=== PATIENT | male | born 1985 | race Caucasian/White ===

== ENCOUNTER 2022-07-06 13:35 | Outpatient (CLI) | payer MEDICAID, SELFPAY ==
--- NOTE | 2022-07-06 13:50 | CT_ITS ---
WS: [id number] CT chest w con* [id number] HISTORY: CHEST PAIN TECHNIQUE: Axial imaging performed through the thorax. Coronal and sagittal reformats are submitted. All CT scans at [facility] use at least one of these dose optimization techniques: automated exposure control; mA and/or kV adjustment per patient size (includes targeted exams where dose is mat ched to clinical indication); or iterative reconstruction. CONTRAST: Omnipaque 350; 100 mL IV. DLP: 868.27 mGy.cm COMPARISON: None available. Lungs and central airway: Study limited by breathing motion artifact. No pulmonary nodules or mass. N o opacification related to the injury. No endobronchial abnormality. Pleura: Normal. No pleural effusion. Heart and pericardium: Normal size heart with no pericardial effusion. Mediastinum and rey: No mediastinum or hilar adenopathy. Vessels: Normal size aortic and pulmonary artery. No coronary artery calcifications. Chest wall and lower neck: No soft tissue masses. Upper abdomen: Normal. Osseous structures: Mild straightening of the normal thoracic kyphosis with mild spondylitic changes. Mild focal enlargement involving the posterior medial RIGHT rib which may be from a healed fracture. No acute fracture. CT/CT chest w con* [id number] IMPRESSION: 1. Study is compromised by breathing motion artifact. 2. No pneumonia or pulmonary nodule. No interstitial opacifications related to aging injury. 3. No adenopathy.
[2022-07-06] MEDS: iohexol 350 mg/mL 500 mL Btl (per mL) IV (14:07)
== END 2022-07-06 13:36 | disposition home or self-care (01) ==
LOC: RAD 13:40
PROVIDERS: PCP Electrodiagnostic Medicine; Visit Provider Electrodiagnostic Medicine
DX: R07.9 Chest pain, unspecified (principal)
CPT/HCPCS: 71260; Q9967

== ENCOUNTER 2023-01-27 11:01 | Outpatient (CLI) | payer MEDICAID, SELFPAY ==
--- NOTE | 2023-01-27 11:08 | CT_ITS ---
WS: [id number] CT chest wo con [id number] HISTORY: RIB FRACTURE TECHNIQUE: Axial imaging performed through the thorax. Coronal and sagittal reformats are submitted. All CT scans at [facility] use at least one of these dose optimization techniques: automated exposure control; mA and/or kV adjustment per patient size (includes targeted exams where dose is mat ched to clinical indication); or iterative reconstruction. CONTRAST: None DLP: 797.72 mGy.cm COMPARISON: 07/06/2022 Lungs and central airway: Normally expanded. No pulmonary mass or nodule. No pneumonia. Pleura: Normal. No pleural effusion. Heart and pericardium: Normal size heart with no pericardial effusion. Mediastinum and rey: No mediastinum or hilar adenopathy. Vessels: Normal size aortic and pulmonary artery. No coronary artery calcifications. Chest wall and lower neck: No soft tissue masses. Upper abdomen: Normal. Osseous structures: Reidentified is the mild bony expansion involving the posterior RIGHT ninth rib. Very similar in appearance to the prior study of 07/06/2022. There is no destruction of the cortex. No acute rib fractures. IMPRESSION: 1. No acute thoracic abnormality. 2. Mild expansion of the medial posterior RIGHT ninth rib. Similar to the prior study with no osseous destruction. This may be from a remote healed rib fracture or benign bone lesion such as enchondroma . There has been no progression of the expansion and no destruction of the cortex. Clinically if this is painful bone scan imaging may be helpful to provide additional information.
== END 2023-01-27 11:02 | disposition home or self-care (01) ==
LOC: RAD 11:01
PROVIDERS: PCP Electrodiagnostic Medicine; Visit Provider Electrodiagnostic Medicine
DX: S22.31XG Fracture of one rib, right side, subsequent encounter for fracture with delayed healing (principal); X58.XXXD Exposure to other specified factors, subsequent encounter
CPT/HCPCS: 71250

== ENCOUNTER → 2023-12-19 17:03 | Outpatient (BNVA) | payer MEDICAID, SELFPAY | PROVIDERS: PCP Electrodiagnostic Medicine | DX: J02.9 Acute pharyngitis, unspecified (principal) | CPT/HCPCS: 87880 ==

== ENCOUNTER 2024-04-15 03:52 | Inpatient (IN) | payer MEDICAID, SELFPAY ==
[2024-04-15] VITALS (42 sets, daily range): BP systolic 111–158; BP diastolic 76–120; PULSE 48–154; RESP 10–26; TEMP 36.3–36.6; O2SAT 35–98; BMI 42.3
--- NOTE | 2024-04-15 04:01 | ECG_ITS ---
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
--- NOTE | 2024-04-15 04:06 | XRR_ITS ---
PROCEDURE INFORMATION: Exam: XR Chest Exam date and time: 04/15/2024 4:08 AM Age: 38 years old Clinical indication: Other: Tachycardia; Chest pressure; C/O chest pain. Tachycardic and hypertensive on monitor. TECHNIQUE: Imaging protocol: Radiologic exam of the chest. Views: 1 view. COMPARISON: CT chest con [id number] 27/01/2023 11:15 FINDINGS: Lungs: Unremarkable. No consolidation. Pleural spaces: Unremarkable. No pleural effusion. No pneumothorax. Heart/Mediastinum: Stable cardiomediastinal silhouette. Bones/joints: Unremarkable. XR/XR chest 1V portable [id number] IMPRESSION: No evidence of active cardiopulmonary disease.
[2024-04-15] MEDS: dilTIAZem 5 mg/mL SDV 5 mL 20 MG IVP (04:12)
[2024-04-15 04:21] LABS: Basophils # 0.1 10^3/uL (0.0-0.1); Basophils % 0.7 %; Eosinophils # 0.4 10^3/uL (0.0-0.8); Eosinophils % 3.9 %; Hematocrit 46.8 % (37-53); Lymphocytes # 2.5 10^3/uL (0.8-4.8); Lymphocytes % 26.4 %; Mean Corpuscular HGB Conc 32.5 g/dL (30-55); Mean Corpuscular Hemoglobin 29.4 pg (27-33); Mean Corpuscular Volume 90.5 fl (82-101); Mean Platelet Volume 10.4 fL (7.4-10.4); Monocytes # 0.6 10^3/uL (0.2-0.9); Monocytes % 5.9 %; Neutrophils # 6.03 10^3/uL (1.8-7.7); Neutrophils % 62.8 %; Nucleated Red Blood Cells % 0 %; Platelet Count 156 10^3/cmm (157-399); Red Blood Count 5.17 10^6/uL (3.85-5.65); Red Cell Distribution Width 13.3 % (12.1-15.1); White Blood Count 9.61 10^3/uL (3.29-11.43)
--- NOTE | 2024-04-15 04:31 | W.ED.SOB ---
HPI - SOB/Dyspnea General: Chief Complaint: Shortness of Breath/Dyspnea Stated Complaint: Chest Pain,Pulse seems high Time Seen by Provider: 04/15/24 04:06 History of Present Illness: HPI Narrative: Patient woke up early this morning with complaints of shortness of breath and chest pain found out that his heart was racing. Patient never had this before. Patient presents to the ER and his heart rate was 154 beats a minute. Patient denies any cardiac problems. Patient states when he went to bed he went to bed feeling just fine as usual. Related Data Home Medications ?Medication ?Instructions ?Recorded ?Confirmed chlorthalidone 50 mg tablet 50 mg PO DAILY 05/10/23 12/19/23 lisinopril 30 mg tablet 30 mg PO DAILY 05/10/23 12/19/23 Previous Rx's ?Medication ?Instructions ?Recorded azithromycin 500 mg tablet 500 mg PO DAILY 5 days #5 tabs 12/19/23 Allergies Allergy/AdvReac Type Severity Reaction Status Date / Time Penicillins Allergy Unknown Verified 12/19/23 16:53 Review of Systems General: Reports: 10 or more systems reviewed and unremarkable except in HPI and below PFSH ED PFSH: Medical History Fracture, rib Family History Father Hypertension Social History Smoking and tobacco/nicotine status: current every day tobacco/nicotine user (vape) e-cigarettes E-Cigarette Details: e-cigarette E-cig/vape details: daily x 5 years Alcohol intake: never Substance/Drug Use: current Substance/Drug use frequency: few times a week Lives independently: Yes Household members: family Marital status: Single Number of children: 0 Pets and animals: Yes Pets & animals: cat(s) and dog(s) Physical Exam Const: COMMON NORMALS: no acute distress, average body habitus, patient oriented x3, no limitations, healthy appearing, alert and well nourished HENMT: COMMON NORMALS: normocephalic, atraumatic, hearing grossly normal bilaterally, external ears normal, Normal external nose present, moist oral mucous membranes and oropharynx normal HEAD & SCALP: normocephalic and atraumatic NOSE: Normal external nose present EXTERNAL EAR: Yes external ears normal Neck/C-Spine: COMMON NORMALS: full ROM, no lymphadenopathy, supple, no meningeal signs, no JVD and Thyroid normal THYROID: Thyroid normal Chest: COMMONS NORMALS: normal inspection of the chest and normal palpation of entire chest wall Resp: COMMON NORMALS: normal respiratory effort, No retractions, No use of accessory muscles and clear to auscultation bilaterally AUSCULTATION: clear to auscultation bilaterally Cardio: COMMON NORMALS: no JVD, S1 normal heart sound present, S2 normal heart sound present, No gallops present (Cardio), No clicks present (Cardio) and No murmurs present (Cardio); negative for regular rate (Irregularly irregular tachycardic rhythm) and negative for regular rhythm RATE: abnormal rate (Irregularly irregular tachycardic rhythm) RHYTHM: abnormal rhythm HEART SOUNDS: S1 normal heart sound present and S2 normal heart sound present GI: COMMON NORMALS: Normal to inspection, nondistended, normoactive bowel sounds present, Soft to palpation, non-tender, No hepatosplenomegaly present and no masses PALPATION: Yes Soft to palpation and Yes No hepatosplenomegaly present Neuro: COMMON NORMALS: patient oriented x3 SENSORIUM/ORIENTATION: Yes alert MENINGEAL SIGNS: Yes no meningeal signs Course Vital Signs: Vital signs: Vital Signs Temperature 98 F 04/15/24 04:18 Pulse Rate 147 H 04/15/24 04:50 Respiratory Rate 14 04/15/24 04:50 Blood Pressure 136/105 04/15/24 04:50 Pulse Oximetry 90 04/15/24 04:50 MDM - SOB/Dyspnea Medical Decision Making Patient came in in A-fib with RVR with a rate about 150 beats a minute. He was given 20 mg Cardizem which did not seem to get any results. He is then placed on a Cardizem drip. Lab work was obtained. Dr. Irene was consulted who agreed to take the patient for further evaluation and treatment. Medical Records I reviewed the patient's medical records. Lab Data I reviewed the patient's lab results. 04/15/24 04:14 04/15/24 04:14 Labs/Radiology: Laboratory Results WBC 9.61 10^3/uL (3.29-11.43) 04/15/24 04:14 RBC 5.17 10^6/uL (3.85-5.65) 04/15/24 04:14 Hgb 15.20 g/dL (11.27-16.99) 04/15/24 04:14 Hct 46.8 % (37-53) 04/15/24 04:14 MCV 90.5 fl (82-101) 04/15/24 04:14 MCH 29.4 pg (27-33) 04/15/24 04:14 MCHC 32.5 g/dL (30-55) 04/15/24 04:14 RDW 13.3 % (12.1-15.1) 04/15/24 04:14 Plt Count 156 10^3/cmm (157-399) L 04/15/24 04:14 MPV 10.4 fL (7.4-10.4) 04/15/24 04:14 Neut % (Auto) 62.8 % 04/15/24 04:14 Lymph % (Auto) 26.4 % 04/15/24 04:14 [place] % (Auto) 5.9 % 04/15/24 04:14 Eos % (Auto) 3.9 % 04/15/24 04:14 Baso % (Auto) 0.7 % 04/15/24 04:14 Neut # (Auto) 6.03 10^3/uL (1.8-7.7) 04/15/24 04:14 Lymph # (Auto) 2.5 10^3/uL (0.8-4.8) 04/15/24 04:14 [place] # (Auto) 0.6 10^3/uL (0.2-0.9) 04/15/24 04:14 Eos # (Auto) 0.4 10^3/uL (0.0-0.8) 04/15/24 04:14 Baso # (Auto) 0.1 10^3/uL (0.0-0.1) 04/15/24 04:14 Nucleated RBC % (auto) 0 % 04/15/24 04:14 Nucleated RBCs # 0.0 /100WBC 04/15/24 04:14 PT 13.70 SECONDS (12.1-14.9) 04/15/24 04:14 INR 0.98 (0.8-1.2) 04/15/24 04:14 Sodium 139 mmol/L (136-145) 04/15/24 04:14 Potassium 4.1 mmol/L (3.5-5.1) 04/15/24 04:14 Chloride 101 mmol/L (98-107) 04/15/24 04:14 Carbon Dioxide 27 mmol/L (22-29) 04/15/24 04:14 Anion Gap 15.1 (5-19) 04/15/24 04:14 Calcium 9.6 mg/dL (8.5-10.5) 04/15/24 04:14 Total Bilirubin 0.3 mg/dL (0.15-1.2) 04/15/24 04:14 AST 27 U/L (0-40) 04/15/24 04:14 ALT 23 U/L (0-41) 04/15/24 04:14 Troponin T Baseline 11 ng/L (0-15) 04/15/24 04:14 Total Protein 7.1 g/dL (6.6-8.7) 04/15/24 04:14 Albumin 4.0 g/dL (3.5-5.2) 04/15/24 04:14 Globulin 3.1 g/dL (1.3-4.6) 04/15/24 04:14 TSH 3.79 uIU/mL (0.27-4.20) 04/15/24 04:14 All radiology interpretation(s) finalized by discharge Discharge Plan Discharge Patient Disposition: Admitted As Inpatient Clinical Impression: Atrial fibrillation with rapid ventricular response Condition: Stable Coding Level of Care Code ED [employer] for Kathy Quijano
[2024-04-15 04:37] LABS: INR 0.98 (0.8-1.2)
[2024-04-15] MEDS: dilTIAZem 100 MG in sodium chloride 0.9% (add-van) 100 ML IV (04:46)
[2024-04-15 04:48] LABS: Troponin(5th) Baseline 11 ng/L (0-15)
[2024-04-15 04:55] LABS: Alanine Aminotransferase 23 U/L (0-41); Alkaline Phosphatase 16 U/L (40-130); Anion Gap 15.1 (5-19); Aspartate Amino Transferase 27 U/L (0-40); Blood Urea Nitrogen 26 mg/dL (6-20); Calcium 9.6 mg/dL (8.5-10.5); Carbon Dioxide 27 mmol/L (22-29); Chloride 101 mmol/L (98-107); Creatinine Clr Calc Pharmacy 109.4107; Globulin 3.1 g/dL (1.3-4.6); Glomerular Filtration Rate 56.4 mL/min (90-130); Glucose 163 mg/dL (65-115); Magnesium 1.5 mg/dL (1.7-2.3); Osmolality Calculated 296 mOsm/kg (285-295); Potassium 4.1 mmol/L (3.5-5.1); Sodium 139 mmol/L (136-145); Thyroid Stimulating Hormone 3.79 uIU/mL (0.27-4.20); Total Bilirubin 0.3 mg/dL (0.15-1.2); Total Protein 7.1 g/dL (6.6-8.7)
--- NOTE | 2024-04-15 04:59 | PM.HP ---
Providers/Chief Complaint Primary Care Provider: Dhaval Arciniega DO Chief Complaint: Chest Pain,Pulse seems high History of Present Illness Mario Savage is a 38 year old male with morbid obesity, hypertension, presented with chief complaint of chest discomfort which started around 2:30 AM. Patient is stating that this discomfort woke him up, it was radiating towards his left arm, he did not experience any diaphoresis, shortness of breath nausea vomiting. In the ER patient was diagnosed with A-fib RVR he was started on Cardizem drip, his heart rate is still 140-100 60s, he was put on amiodarone drip as well patient is not experiencing chest pain or shortness of breath at time of evaluation. He is afebrile. Patient is stating that he has been noticing swelling of his legs recently. Not very active at baseline. Patient thinks he has sleep apnea he has never completed any sleep study. Endorses to electronic cigarettes, occasional marijuana Review of Systems Eyes: Denies: change in vision ENMT: Denies: throat pain Card: Denies: chest pain Resp: Reports: dyspnea GI: Denies: abdominal pain : Denies: flank pain Musc: Reports: neck pain Skin/Breast: Denies: rash Neuro: Denies: headache(s) Psych: Reports: anxiety Endo: Denies: polyuria Medications/Allergies Home Medications ?Medication ?Instructions ?Recorded ?Confirmed ?Last Taken ?Type chlorthalidone 50 mg tablet 50 mg PO DAILY 05/10/23 12/19/23 Unknown History lisinopril 30 mg tablet 30 mg PO DAILY 05/10/23 12/19/23 Unknown History azithromycin 500 mg tablet 500 mg PO DAILY 5 days #5 tabs 12/19/23 12/19/23 Unknown Rx Allergies Allergy/AdvReac Type Severity Reaction Status Date / Time Penicillins Allergy Unknown Verified 12/19/23 16:53 PFSH Acute PFSH: Medical History Fracture, rib Family History Father Hypertension Social History Smoking and tobacco/nicotine status: current every day tobacco/nicotine user (vape) e-cigarettes E-Cigarette Details: e-cigarette E-cig/vape details: daily x 5 years Alcohol intake: never Substance/Drug Use: current Substance/Drug use frequency: few times a week Lives independently: Yes Household members: family Marital status: Single Number of children: 0 Pets and animals: Yes Pets & animals: cat(s) and dog(s) Vitals/I&O/Wt Last Vital Signs Temp 98 F 04/15/24 04:18 Pulse 147 H 04/15/24 04:50 Resp 14 04/15/24 04:50 BP 136/105 04/15/24 04:50 Pulse Ox 90 04/15/24 04:50 Weight last 48 hrs Weight 149.685 kg Physical Exam Narrative: Patient is awake and alert Morbidly obese Currently on room air A-fib RVR Lower extremity edema 1+ Pedal edema GCS 15 Nonfocal neuroexam A-fib RVR Currently on room air Abdomen distended nontender No active chest pain Data 04/15/24 04:14 04/15/24 04:14 A&P Assessment and plan (1) Atrial fibrillation with rapid ventricular response: Plan New onset A-fib A-fib with RVR Johny Vascor is 1 Secondary to abnormal D-dimer I will request therapeutic Lovenox D-dimer and CTA chest to rule out thromboembolic disease Patient has untreated sleep apnea, never completed sleep study, will need at the time of referral discharge Continue cardiac diet Currently on Cardizem drip which helps in optimized patient's heart rate is still in 160s, added amiodarone drip with bolus Check TSH, mag level Replenish magnesium Full code Cardiac diet PDMP PDMP Reviewed: Not Reviewed Attestations Medical Necessity Statement*: More than 2 midnights anticipated Diagnoses Atrial fibrillation with rapid ventricular response I48.91
[2024-04-15 05:25] LABS: D Dimer 2.25 ug/mLFEU (0-0.59)
--- NOTE | 2024-04-15 05:32 | USR_ITS ---
PROCEDURE INFORMATION: Exam: US Duplex Lower Extremity Veins, Bilateral Exam date and time: 04/15/2024 9:44 AM Age: 38 years old Clinical indication: Swelling (edema) of limb; Lower extremity, bilateral TECHNIQUE: Imaging protocol: Real-time duplex ultrasound of the bilateral extremities with 2-D connell scale, color Doppler flow and spectral waveform analysis including responses to compression and other maneuvers (when performed) with image documentation. Complete exam focused on the lower extremity veins. COMPARISON: US scrotum [id number] 02/09/2018 9:10 PM FINDINGS: Right deep veins: Unremarkable. The common femoral, femoral, proximal profunda femoral and popliteal veins are patent without thrombus. Normal Doppler waveforms. Normal compressibility and/or augmentation response. Left deep veins: Unremarkable. The common femoral, femoral, proximal profunda femoral and popliteal veins are patent without thrombus. Normal Doppler waveforms. Normal compressibility and/or augmentation response. Superficial veins: Greater saphenous veins at the saphenofemoral junctions are patent bilaterally without thrombus. Soft tissues: Unremarkable. US/CV venous duplex [facility] [id number] IMPRESSION: No DVT.
--- NOTE | 2024-04-15 05:32 | CTR_ITS ---
PROCEDURE INFORMATION: Exam: CTA Chest With Contrast Exam date and time: 04/15/2024 6:13 AM Age: 38 years old Clinical indication: Pain and abnormal findings; Abnormal diagnostic tests; Elevated d-dimer; Chest pressure; Chest pain with afib rvr. Dimer 2.25. ; Additional info: Pafib rvr TECHNIQUE: Imaging protocol: Computed tomographic angiography of the chest with contrast. Exam focused on the arteries. 3D rendering (Not supervised by radiologist): MIP and/or 3D reconstructed images were created by the technologist. Radiation optimization: All CT scans at this facility use at least one of these dose optimization techniques: automated exposure control; mA and/or kV adjustment per patient size (includes targeted exams where dose is matched to clinical indication); or iterative reconstruction. Contrast material: OMNI 350; Contrast volume: 72 ml; Contrast route: INTRAVENOUS (IV); COMPARISON: CT chest con [id number] 01/27/2023 11:15 AM RADIATION DOSE METRICS: Total DLP (mGy-cm): 617.6 FINDINGS: Pulmonary arteries: Normal. No pulmonary emboli. Aorta: Unremarkable. No aortic aneurysm. No aortic dissection. Lungs: Unremarkable. No consolidation. No masses. Pleural spaces: Unremarkable. No pneumothorax. No pleural effusion. Heart: Unremarkable. No cardiomegaly. No pericardial effusion. Lymph nodes: Unremarkable. No enlarged lymph nodes. Bones/joints: The thoracic spine demonstrates mild degenerative changes at multiple levels. Similar chronic deformity of posterior arch of the right 9th rib, likely posttraumatic Soft tissues: Unremarkable. CT/CT angio chest PE protcl [id number] IMPRESSION: 1. No pulmonary embolism. 2. No acute infiltrates.
[2024-04-15 05:41] LABS: NT Pro B Type Natriuretic Pept 73 pg/mL (0-125)
--- NOTE | 2024-04-15 05:46 | PC.NURSE ---
Patient's cardizem maxed out. Dr Irene notified at bedside and verbal order given for amiodarone drip.
[2024-04-15 05:53] LABS: Bilirubin Urine Negative (Negative); Blood Urine Negative (Negative); Glucose Urine UA Negative (Normal); Ketones Urine Negative (Negative); Leukocyte Esterase Urine Negative (Negative); Nitrate Urine Negative (Negative); Protein Urine Negative (Negative); Specific Gravity, Urine 1.005 (1.005-1.030); Urine Appearance Clear (CLEAR); Urine Color Yellow (Yellow); Urobilinogen Urine 0.2 mg/dL (Negative); pH Urine 5.5 (5-7)
[2024-04-15 05:58] LABS: Add Urine Microscopic? YES; Bacteria Urine None Seen /hpf; Hyaline Casts Urine 0-4 /lpf; RBC Urine 0-2 /hpf (0-2); Squamous Epithelial Cell Urine 0-5 /hpf (0-5); WBC Urine 0-5 /hpf (0-5)
[2024-04-15 06:00] LABS: Amphetamines Screen Urine Negative (Negative); Barbiturates Screen Urine Negative (Negative); Benzodiazepines Screen Urine Negative (Negative); Cocaine Screen Urine Negative (Negative); Opiate Screen Urine Negative (Negative); PCP Screen Urine Negative (Negative); THC Screen Urine Positive (Negative)
[2024-04-15] MEDS: amiodarone 150 MG/100 ML PREMIX 400 MG IV (06:29)
[2024-04-15] MEDS: enoxaparin 150 mg/mL Syringe SUBCUT ×2 (06:30→17:14)
[2024-04-15] MEDS: magnesium sulfate premix 2 GM/50 ML PIGGYBACK IV (06:55)
[2024-04-15 07:26] LABS: Troponin 5 2HR 17.47 ng/L (0-15); Troponin 5 2HR Delta 6.47 ABS# (0-10)
--- NOTE | 2024-04-15 10:36 | ECG_ITS ---
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
[2024-04-15 11:04] LABS: Troponin 5 6HR 15.82 ng/L (0-15); Troponin 5 6HR Delta 4.82 ng/L (0-12)
[2024-04-15] MEDS: dilTIAZem 30 mg Tablet PO ×2 (12:28→17:14)
--- NOTE | 2024-04-15 12:38 | PC.NURSE ---
verbal order from Dr. Banda to stop patients cardizem drip but continue amiodrone drip.
--- OUTSIDE RECORDS SUMMARY | 2024-04-15 12:44 | XMS_ITS | Encounter Summary ---
Author Organization [employer] Address 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
--- OUTSIDE RECORDS SUMMARY | 2024-04-15 12:44 | XMS_ITS | Encounter Summary ---
Author Organization [facility] Address [address] [place] [address] Care Team Providers Care Shop Repairer Name Role Phone Unavailable Primary Care Provider Unavailabl e Reason for Visit * Reason Comments Pain Chest pain * Eval and Treat (Routine) - Closed Specialty Diagnoses / Procedures Referred By Dereck weinstein Referred To Contact Physical Medicine and Rehabilitation Diagnoses Chest pain, unspecified Procedures [place] UNLISTED EVALUATION AND MANAGEMENT SERVICE [place] OFFICE/OUTPATIENT [facility] 30 MINUTES Dhaval Arciniega DO [address] [facility] [address] [place] [address] Phone: tel: fax: [facility] Physical Med [facility] [address] [address] Phone: tel: fax: Referral ID Status Reason Start Date Expiration Date Visits Re quested Visits Authorized [id number] Closed 12/27/2023 01/26/2025 1 1 Encounter Details Date Type Department Care Team (Latest Contact Info) Description 03/16/2024 3:00 PM FERRULER Office Visit [facility] [address] [address] Phillip Carrasco MD [address] [facility] [address] [place] [address] Costochondritis (Primary Dx) Social History Tobacco Use Types Packs/Day Years Used Date Smoking Tobacco: Unknown Tobacco Cessation:Counseling Given: Not Answered Sex and Gender Information Value Date Recorded Sex Assigned at Not on file Legal Sex Male 4:47 AM FERRULER Gender Identity Not on file Sexual Orientation Not on file documented as of this encounter Last Filed Vital Signs Vital Sign Reading Time Taken Comments Blood Pressure 130/80 03/16/2024 2:51 PM FERRULER Pulse - - Temperature - - Respiratory Rate - - Oxygen Saturation - - Inhaled Oxygen Concentration - - Weight 158.8 kg (350 lb) 03/16/2024 2:51 PM FERRULER Height - - Body Mass Index - - documented in this encounter Progress Notes * Phillip Carrasco MD - 03/16/2024 3:01 PM CST PM&R CLINIC NOTE SUBJECTIVE: Patient reports the pain is located R sternal/chest area. It began 2-3 years ago. Therewas a pop when he picked his aunt up off the floor. Patient characterizes their pain as sharp, stabbing pain. Aggravating factors include movements, pressure, laying o his side. Alleviating factors include avoiding aggravating motions. Previous workup: - x-rays w/ no acute pathology Previous treatment: - none. Current Outpatient Medications: meloxicam (MOBIC) 15 mg tablet, Take 1 Tablet (15 mg) by mouth daily. Prescribed Meloxicam 15mg (take 1/2 to 1 tab daily x 4 weeks. Then take no more than 4 days per week)., Disp: 30 Tablet, Rfl: 2 Allergies Allergen Reactions Penicillins Unknown Sulfa (Sulfonamide Antibiotics) Unknown Physical Exam Vitals: 03/16/24 1451 BP: 130/80 BP Location: Right arm Patient Position (BP): Sitting Weight: (!) 158.8 kg (350 lb) There is no height or weight on file to calculate BMI. Constitutional: no acute distress, appears stated age ENMT: supple Cardiovascular: Well perfused Respiratory: normal effort with respirations Gastrointestinal: nondistended Extremities: No edema Skin: Warm and dry Psychiatric: Appropriate mood and affect Neuro/MSK: no ttp along sternum. Some pain with forced R arm internal rotation and extreme adduction against resistance IMAGING: none IMPRESSION: ICD-10-CM ICD-9-CM 1. Costochondritis M94.0 733.6 Mario Savage is a pleasant 38 y.o. male who is here today for sternal pain. History and examination are consistent with a diagnosis of msk pain of anterior right chest, potentially issues with costochondral joint. PLAN: Therapy: No new therapy needs at this time. DME/Bracing: None at this time. Medications: Prescribed Meloxicam 15mg (take 1/2 to 1 tab daily x 4 weeks. Then take no more than 4days per week). Diagnostics: No new diagnostics at this time. Interventions: None at this time. Recommended going to person here in [place] that can do diagnostic ultrasound and potential US guided steroid injection. Follow: Patient will follow up prn. The risks and benefits of above medications and interventions were discussed and patient verbalizedunderstanding. Phillip Carrasco M.D. Physical Medicine and Rehabilitation Portions of this note may have been created using [employer], a voice recognition software program. Please contact my office for clarification on any documentation. ULER documented in this encounter Plan of Treatment Not on file documented as of this encounter Visit Diagnoses Diagnosis Costochondritis- Primary Tietze's disease documented in this encounter
--- OUTSIDE RECORDS SUMMARY | 2024-04-15 12:44 | XMS_ITS | Clinical Summary ---
Author Organization [facility] Address [address] [place] [address] Phone Care Team Providers Care Tentering Machine Off Bearer Name Role Phone Unavailable Primary Care Provider Unavailabl e Allergies Active Allergy Reactions Criticality Noted Date Comments Penicillins Unknown 09/26/2008 Sulfa (Sulfonamide Antibiotics) Unknown 09/06 Medications meloxicam (MOBIC) 15 mg tabletIndicatio ns:Costochondri tis Take 1 Tablet (15 mg) by mouth daily. Prescribed Meloxicam 15mg (take 1/2 to 1 tab daily x 4 weeks. Then take no more than 4 days per week). 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 Office Visit [facility] [place] [address] [place] [id number] Phillip Carrasco MD Costochondritis (Primary Dx) from Last 3 Months Social History Tobacco Use Types Packs/Day Years Used Date Smoking Tobacco: Unknown Tobacco Cessation:Counseling Given: Not Answered Sex and Gender Information Value Date Recorded Sex Assigned at Not on file Legal 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 Gender Identity Not on file Sexual Orientation Not on file Last Filed Vital Signs Vital Sign Reading Time Taken Comments Blood Pressure 130/80 03/16/2024 2:51 PM RIVETING MACHINE OPERATOR Pulse 54 09/26/2008 7:46 AM CDT Temperature 36.7 ??C (98.1 ??F) 09/26/2008 7:46 AM CD T Respiratory Rate 16 09/26/2008 7:46 AM CDT Oxygen Saturation 100% 09/26/2008 7:46 AM CDT Inhaled Oxygen Concentration - - Weight 158.8 kg (350 lb) 03/16/2024 2:51 PM RIVETING MACHINE OPERATOR Height 172.7 cm (5' 8 ) 09/26/2008 7:46 AM CDT Body Mass Index - - Plan of Treatment Health Maintenance Due Date Last Done Comments DTAP/TDAP/TD VACCINES (1 - Tdap) 11/10/2003 HEPATITIS B VACCINES (1 of 3 - 19+ 3-dose series) 11/10/2003 INFLUENZA VACCINE (#1) 2023 HPV VACCINES Aged Out No longer eligi ble based on patient's age to complete this topic PNEUMOCOCCAL VACCINE 0-64 YEARS Aged Out No longer eligible based on patient's age to complete this topic Insurance [facility] [id number]
--- OUTSIDE RECORDS SUMMARY | 2024-04-15 12:44 | XMS_ITS | Encounter Summary ---
Author Organization [employer] Address 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
--- OUTSIDE RECORDS SUMMARY | 2024-04-15 12:44 | XMS_ITS | Encounter Summary ---
Author Organization [employer] Address 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
--- OUTSIDE RECORDS SUMMARY | 2024-04-15 12:44 | XMS_ITS | Encounter Summary ---
Author Organization [employer] Address 

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
--- NOTE | 2024-04-15 13:16 | PM.CONSULT ---
Providers/Reason For Consult Consulting Physician/Specialty*: Dr. Banda Reason for Consult*: New onset of A-fib with RVR Chest pain Requesting Physician: Dr. Banda Attending Physician: Jaycee Banda MD Primary Care Provider: Dhaval Arciniega DO History of Present Illness History of Present Illness Mario Savage is a 38 year old male past medical history significant for morbid obesity trying to lose weight already lost 60 pounds by eating right, uncontrolled hypertension, sleep apnea possible presented with palpitation pounding racing of the heart noted to be in atrial fibrillation with rapid ventricular response. Cardizem drip was tried but patient did not slow down along with metoprolol therefore he was switched to IV amiodarone which converted him to sinus rhythm currently denies any chest pain PND orthopnea. 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 His twelve-lead EKG did not show any ischemic changes. Review of Systems General: Reports: 10 or more systems reviewed and unremarkable except in HPI and below Eyes: Denies: change in vision ENMT: Denies: throat pain Card: Denies: chest pain Resp: Reports: dyspnea GI: Denies: abdominal pain : Denies: flank pain Musc: Reports: neck pain Skin/Breast: Denies: rash Neuro: Denies: headache(s) Psych: Reports: anxiety Endo: Denies: polyuria Medications/Allergies Home Medications ?Medication ?Instructions ?Recorded ?Confirmed ?Last Taken ?Type chlorthalidone 50 mg tablet 50 mg PO DAILY 05/10/23 04/15/24 Unknown History lisinopril 40 mg tablet 40 mg PO DAILY 04/15/24 04/15/24 Unknown History meloxicam 15 mg tablet See Rx Instructions .Route .COMPLEX 04/15/24 04/15/24 Unknown History Allergies Allergy/AdvReac Type Severity Reaction Status Date / Time Penicillins Allergy Unknown Verified 12/19/23 16:53 Current Medications Generic Name Dose Route Start Last Admin Trade Name Freq PRN Reason Stop Dose Admin Diltiazem HCl 30 mg 04/15/24 11:30 04/15/24 12:28 Diltiazem 30 Mg Tablet PO 30 mg Q6H MARU Administration Enoxaparin Sodium 150 mg 04/15/24 05:32 04/15/24 06:30 Enoxaparin 150 Mg/Ml Syringe SUBCUT 150 mg Q12H MARU Administration Diltiazem HCl 100 mg/ Sodium 100 mls @ 0 mls/hr 04/15/24 04:15 04/15/24 11:18 Chloride IV Infused .Q0M MARU Titration Protocol Per Protocol Amiodarone HCl/Dextrose 360 mg in 200 mls @ 0 mls/hr 04/15/24 05:45 04/15/24 12:47 Nexterone IV 0.5 mg/min .Q0M MARU 16.67 mls/hr Administration Protocol Per Protocol Senna/Docusate Sodium 1 tab 04/15/24 09:00 04/15/24 11:20 Sennosides-Docusate Tablet PO Not Given DAILY MARU PFSH Acute PFSH: Medical History Fracture, rib Family History Father Hypertension Social History Smoking and tobacco/nicotine status: current every day tobacco/nicotine user (vape) e-cigarettes E-Cigarette Details: e-cigarette E-cig/vape details: daily x 5 years Alcohol intake: never Substance/Drug Use: current Substance/Drug use frequency: few times a week Lives independently: Yes Household members: family Marital status: Single Number of children: 0 Pets and animals: Yes Pets & animals: cat(s) and dog(s) Dietary Habits: Current diet type/program: regular Caffeine: Yes Vitals/I&O/Wt Last Vital Signs Temp 98 F 04/15/24 04:18 Pulse 108 H 04/15/24 10:00 Resp 16 04/15/24 10:00 BP 143/114 04/15/24 08:15 Pulse Ox 94 04/15/24 10:00 O2 Del Method Room Air 04/15/24 10:00 04/14/24 04/15/24 04/15/24 22:59 06:59 14:59 Intake Total 6.542 / 6.542 443.458 / 443.458 Balance 6.542 / 6.542 443.458 / 443.458 Weight last 48 hrs Weight 330 lb Physical Exam Const: OTHER: GENERAL: Patient is alert, awake and oriented x3. HEART: Regular S1 and S2. No murmur, rub or gallop. LUNGS: Clear to auscultate bilaterally. CENTRAL NERVOUS SYSTEM: Grossly nonfocal. EXTREMITIES: Lower extremities with out edema bilaterally. Data 04/15/24 04:14 04/15/24 04:14 A&P Assessment and plan (1) Atrial fibrillation with rapid ventricular response: (2) Essential hypertension: (3) Chest pain: (4) Vaping nicotine dependence, tobacco product: Plan New onset atrial fibrillation most likely secondary to uncontrolled hypertension/obstructive sleep apnea currently patient is converted to sinus rhythm we will therefore switch him to metoprolol 12.5 mg succinate once a day and Cardizem 60 mg p.o. twice daily. [id number] score is less than 2 therefore full dose 325 mg of aspirin is recommended. As an outpatient patient can undergo sleep study. Advise necessity of losing weight which he is already trying and has lost 60 pounds by eating right. Unfortunately he smokes and vape advised to quit vaping and smoking. Echocardiogram will be obtained, Chest pain appeared to be atypical in nature and mostly musculoskeletal if there is no wall motion abnormality on the echocardiogram may not need a stress test then. Check lipid profile in the morning. Advise quitting vaping patient said he will work on it. PDMP PDMP Reviewed: Not Reviewed Consult Attestations Medical Necessity Statement: As per medicine Coding Level of Care Code Acute Code for [facility] Fwd Diagnoses Atrial fibrillation with rapid ventricular response I48.91 Essential hypertension I10 Chest pain R07.9 Vaping nicotine dependence, tobacco product F17.290
--- NOTE | 2024-04-15 13:22 | PM.MISC ---
Miscellaneous Note Purpose of Documentation: Overnight labs and H&P reviewed. Patient continues to be in A-fib. Currently on Cardizem infusion at 15 mg/h and amiodarone 1 mg/min. Currently heart rate is running in the 70s. Discontinue Cardizem infusion, transition to oral Cardizem 30 mg every 6 hours. Continue amiodarone, reduce dose to 0.5mg/min. Echocardiogram currently remains pending. Patient has a history of untreated suspected sleep apnea. He is yet to have a formal sleep study. Family reports they have encountered him to have multiple episodes of apnea during sleep. This may be the underlying cause. CTA of the chest negative. Jabier extremity Doppler negative for any thromboembolism. Cardiology consult for persistent A-fib in spite of being on to rate control agents. Continue Lovenox 150 mg every 12 hours.
[2024-04-15] MEDS: metoprolol succinate ER (24 HR) 25 mg Tablet 12.5 MG PO (14:09)
[2024-04-15] MEDS: aspirin 325 mg Tablet PO (14:09)
[2024-04-15] MEDS: sodium chloride 0.9% 1,000 ML 100 ML IV (14:56)
[2024-04-16] MEDS: sodium chloride 0.9% 1,000 ML 100 ML IV ×2 (01:00→09:22)
--- NOTE | 2024-04-16 03:00 | ECG_ITS ---
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
[2024-04-16] MEDS: hyDRALAzine 20 mg/mL INJ 1 mL 10 MG IVP (03:56)
[2024-04-16 04:18] LABS: Basophils # 0.1 10^3/uL (0.0-0.1); Basophils % 0.7 %; Eosinophils # 0.4 10^3/uL (0.0-0.8); Eosinophils % 3.6 %; Hematocrit 46.1 % (37-53); Lymphocytes # 2.9 10^3/uL (0.8-4.8); Lymphocytes % 30.2 %; Mean Corpuscular HGB Conc 31.9 g/dL (30-55); Mean Corpuscular Hemoglobin 29.3 pg (27-33); Mean Corpuscular Volume 91.8 fl (82-101); Mean Platelet Volume 11.3 fL (7.4-10.4); Monocytes # 0.5 10^3/uL (0.2-0.9); Monocytes % 5.5 %; Neutrophils # 5.71 10^3/uL (1.8-7.7); Neutrophils % 59.6 %; Nucleated Red Blood Cells % 0 %; Platelet Count 153 10^3/cmm (157-399); Red Blood Count 5.02 10^6/uL (3.85-5.65); Red Cell Distribution Width 13.4 % (12.1-15.1)
[2024-04-16 04:34] LABS: Anion Gap 15.2 (5-19); Blood Urea Nitrogen 21 mg/dL (6-20); Calcium 9.2 mg/dL (8.5-10.5); Carbon Dioxide 26 mmol/L (22-29); Chloride 102 mmol/L (98-107); Creatinine Clr Calc Pharmacy 117.8269; Glomerular Filtration Rate 61.5 mL/min (90-130); Glucose 94 mg/dL (65-115); Magnesium 1.5 mg/dL (1.7-2.3); Osmolality Calculated 291 mOsm/kg (285-295); Potassium 4.2 mmol/L (3.5-5.1); Sodium 139 mmol/L (136-145)
[2024-04-16] MEDS: enoxaparin 150 mg/mL Syringe SUBCUT (05:36)
[2024-04-16 06:09] VITALS: PULSE 46
--- NOTE | 2024-04-16 07:02 | USCV_ITS ---
Mario Savage Age: 38 Gender: M : 1985 Exam Date: 04/16/2024 10:47 Ordering Phys: Cisco Irene MD Technologist: Neal Irvin Exam Location: [facility] [place] Indication: chf BP: 130 / 90 HR: 57 Rhythm: Sinus Technical Quality: Adequate MEASUREMENTS (Male / Female) Normal Values 2D ECHO LV Diastolic Diameter PLAX 5.4 cm 4.2 - 5.9 / 3.9 - 5.3 cm IVS Diastolic Thickness 1.3 cm 0.6 - 1.0 / 0.6 - 0.9 cm IVS Systolic Thickness 1.8 cm LVPW Diastolic Thickness 1.6 cm 0.6 - 1.0 / 0.6 - 0.9 cm LVPW Systolic Thickness 2.2 cm LVOT Diameter 2.2 cm LV Ejection Fraction 2D Teich 70.2 % LV Ejection Fraction MOD 4C 59.1 % LV Ejection Fraction MOD 2C 73.0 % LV Ejection Fraction 2C AL 73.8 % LA Diameter 3.8 cm RA Systolic Volume 4C AL 106.1 ml RA Systolic Volume 4C MOD 103.8 ml LA Sys Volume AL 108.4 cm cubed LA Sys Volume Index AL 36.2 cm cubed/m squared Aorta at Sinotubular Diameter 3.1 cm IVC Diameter 2.4 cm M-MODE LA Ao Ratio MM 1.0 AV Cusp Separation MM 1.8 cm DOPPLER AV Peak Velocity 139.0 cm/s LVOT Peak Velocity 89.0 cm/s AV Area Cont Eq vti 2.3 cm squared AV Area Cont Eq pk 2.4 cm squared MV Peak Velocity 121.0 cm/s MV Area PHT 6.6 cm squared Mitral E to A Ratio 1.3 TV Peak Velocity 279.5 cm/s TR Peak Velocity 284.0 cm/s TR Peak Gradient 32.3 mmHg TR Mean Velocity 232.0 cm/s TR Mean Gradient 22.6 mmHg TR Velocity Time Integral 81.9 cm PV Peak Velocity 92.0 cm/s RV Ejection Time 0.3 s FINDINGS Left Ventricle Normal left ventricular size, systolic function and wall thickness, with no regional wall motion abnormalities. Left ventricular ejection fraction is estimated at 60 %. Normal diastolic function. Right Ventricle The right ventricle is normal in size and function. Right Atrium The right atrium is normal in size. Left Atrium The left atrium is normal in size. Mitral Valve Structurally normal mitral valve without significant stenosis or prolapse. There is no mitral regurgitation. Aortic Valve Structurally normal aortic valve without significant sclerosis or stenosis. There is no aortic regurgitation. Tricuspid Valve Structurally normal tricuspid valve without significant stenosis or regurgitation. Pulmonary artery systolic pressure is normal. Pulmonic Valve Structurally normal pulmonic valve without significant stenosis. There is no pulmonic regurgitation. Pericardium Normal pericardium without effusion. Aorta Normal ascending aorta dimension. IVC The inferior vena cava appears normal. CONCLUSIONS Normal left ventricular size, systolic function and wall thickness, with no regional wall motion abnormalities. Left ventricular ejection fraction is estimated at 60 %. Normal diastolic function. There is no pericardial effusion. No significant valve abnormalities. Right atrial pressure is around 5 mm of mercury. Cisco Roblero MD (Electronically Signed) Final Date: 16 April 2024 20:33 S
[2024-04-16] MEDS: aspirin 325 mg Tablet PO (09:22)
[2024-04-16 09:33] VITALS: PULSE 54; RESP 16; O2SAT 94
[2024-04-16] MEDS: metoprolol succinate ER (24 HR) 25 mg Tablet 12.5 MG PO (10:52)
--- NOTE | 2024-04-16 12:12 | P.PN_ITS ---
Subjective 2 Subjective: Patient remains in sinus rhythm. He had episode of bradycardia last night. Vitals/I&O/Wt Last Vital Signs Temp 97.4 F L 04/15/24 20:30 Pulse 54 L 04/16/24 09:33 Resp 16 04/16/24 09:33 BP 130/90 04/15/24 21:30 Pulse Ox 94 04/16/24 09:33 O2 Del Method Room Air 04/16/24 09:33 04/15/24 04/16/24 04/16/24 22:59 06:59 14:59 Intake Total 590 / 5345.697 5473 / 2513.458 1136.667 / 1136.667 Output Total 380 / 380 550 / 930 900 / 900 Balance 210 / 653.458 930 / 1583.458 236.667 / 236.667 Weight last 48 hrs Weight 360 lb Weight 330 lb Weight 330 lb Physical Exam 2 Const: OTHER: GENERAL: Patient is alert, awake and oriented x3. HEART: Regular S1 and S2. No murmur, rub or gallop. LUNGS: Clear to auscultate bilaterally. CENTRAL NERVOUS SYSTEM: Grossly nonfocal. EXTREMITIES: Lower extremities with out edema bilaterally. Data 04/16/24 03:24 04/16/24 03:24 A&P Assessment and plan (1) Atrial fibrillation with rapid ventricular response: (2) Essential hypertension: (3) Chest pain: (4) Vaping nicotine dependence, tobacco product: Plan Discontinue Cardizem p.o. Continue metoprolol succinate 12.5 mg p.o. once a day. Due to low [id number] score less than 2 advised full dose aspirin 325 mg p.o. daily. Sleep study as an outpatient. Echocardiogram today. If stable patient can be discharged today and follow-up with cardiology nurse practitioner in 4 weeks PDMP PDMP Reviewed: Not Reviewed Attestations 2 Medical Necessity Statement*: As per primary team Coding Level of Care Code Acute Code for [facility] Fwd Diagnoses Atrial fibrillation with rapid ventricular response I48.91 Essential hypertension I10 Chest pain R07.9 Vaping nicotine dependence, tobacco product F17.290
--- NOTE | 2024-04-16 12:31 | P.DS_ITS ---
Discharge Providers Date of Admission: 04/15/24 05:00 Date of Discharge: April 16, 2024 Attending Provider at Admission: Cisco Irene MD Attending Provider at Discharge: Jaycee Banda MD Primary Care Provider: Dhaval Arciniega DO Diagnoses at Discharge Discharge Diagnosis (1) Atrial fibrillation with rapid ventricular response: Status: Acute (2) Essential hypertension: Status: Acute (3) Chest pain: Status: Acute (4) Vaping nicotine dependence, tobacco product: Status: Acute Reason for Visit Reason for Visit: Chest Pain,Pulse seems high Hospital Course Hospital Course 38 year old male past medical history significant for morbid obesity trying to lose weight already lost 60 pounds by eating right, uncontrolled hypertension, highly likely sleep apnea presented with palpitation pounding racing of the heart noted to be in atrial fibrillation with rapid ventricular response. Cardizem drip was tried but patient did not slow down along with metoprolol therefore he was switched to IV amiodarone which converted him to sinus rhythm. thereafter he was transitioned to oral Cardizem and oral metoprolol with development of bradycardia on both medications. Therefore he has now been switched to metoprolol only. His heart rate is currently well-controlled. At the time of this discharge heart rate is noted to be 60 bpm. Blood pressure 150/110. Patient is highly suspected to have sleep apnea. His family reports that they note several apneic episodes during sleep at nighttime. He is yet to have a formal sleep study. This has been ordered for him as outpatient and requested expedited diagnostics. He was noted to have hypoxia with oxygen saturation dropping to 83% during sleep, he remained on CPAP at night time. He was needing up to settings of 18 and thereafter needed to be turned to auto CPAP to maintain his oxygen saturation. He is being discharged today with arrangements for nighttime/sleep time oxygen and is recommended to complete the ordered sleep study as an outpatient. CTA chest was negative for PE, venous duplex negative. Patient was seen by cardiology who reviewed the echo images, final results pending, no gross abnormalities encountered. Physical Exam Narrative: General: No acute distress, AO x3 HEENT: PERRLA, pupils bilaterally equal and reactive, pallors not present Chest: Normal vesicular breath sounds, no added sounds, equal good air entry bilaterally CVS: S1-S2 regular, no murmurs, no tachycardia, no gallops, no rubs Abdomen: Soft, nontender, no organomegaly, bowel sounds present Neuro: No focal deficits, no facial deformity, AO x3, power 5/5 in all limbs Extremities: no edema, clubbing or cyanosis Discharge Data Studies Completed and Pending Completed Studies During Hospitalization Category Date Time Status CTA PE [CT angio chest PE protcl [id number]] Routine Cat Scan 04/15/24 05:32 Completed XR chest 1V portable [id number] Stat Exams 04/15/24 04:06 [place] [id number] Routine Ultrasound 04/15/24 05:32 Completed Pending at discharge Category Date Time Status CV. echo complete* [id number] Stat Ultrasound 04/16/24 07:02 Taken Radiology Impressions Chest X-Ray 04/15/24 04:06 IMPRESSION: No evidence of active cardiopulmonary disease. Chest CTA 04/15/24 05:32 IMPRESSION: 1. No pulmonary embolism. 2. No acute infiltrates. Venous Duplex 04/15/24 05:32 IMPRESSION: No DVT. Laboratory Results WBC 9.60 10^3/uL (3.29-11.43) 04/16/24 03:24 RBC 5.02 10^6/uL (3.85-5.65) 04/16/24 03:24 Hgb 14.70 g/dL (11.27-16.99) 04/16/24 03:24 Hct 46.1 % (37-53) 04/16/24 03:24 MCV 91.8 fl (82-101) 04/16/24 03:24 MCH 29.3 pg (27-33) 04/16/24 03:24 MCHC 31.9 g/dL (30-55) 04/16/24 03:24 RDW 13.4 % (12.1-15.1) 04/16/24 03:24 Plt Count 153 10^3/cmm (157-399) L 04/16/24 03:24 MPV 11.3 fL (7.4-10.4) H 04/16/24 03:24 Neut % (Auto) 59.6 % 04/16/24 03:24 Lymph % (Auto) 30.2 % 04/16/24 03:24 [place] % (Auto) 5.5 % 04/16/24 03:24 Eos % (Auto) 3.6 % 04/16/24 03:24 Baso % (Auto) 0.7 % 04/16/24 03:24 Neut # (Auto) 5.71 10^3/uL (1.8-7.7) 04/16/24 03:24 Lymph # (Auto) 2.9 10^3/uL (0.8-4.8) 04/16/24 03:24 [place] # (Auto) 0.5 10^3/uL (0.2-0.9) 04/16/24 03:24 Eos # (Auto) 0.4 10^3/uL (0.0-0.8) 04/16/24 03:24 Baso # (Auto) 0.1 10^3/uL (0.0-0.1) 04/16/24 03:24 Nucleated RBC % (auto) 0 % 04/16/24 03:24 Nucleated RBCs # 0.0 /100WBC 04/16/24 03:24 PT 13.70 SECONDS (12.1-14.9) 04/15/24 04:14 INR 0.98 (0.8-1.2) 04/15/24 04:14 D-Dimer 2.25 ug/mLFEU (0-0.59) H 04/15/24 04:14 Sodium 139 mmol/L (136-145) 04/16/24 03:24 Potassium 4.2 mmol/L (3.5-5.1) 04/16/24 03:24 Chloride 102 mmol/L (98-107) 04/16/24 03:24 Carbon Dioxide 26 mmol/L (22-29) 04/16/24 03:24 Anion Gap 15.2 (5-19) 04/16/24 03:24 BUN 21 mg/dL (6-20) H 04/16/24 03:24 Creatinine 1.3 mg/dL (0.7-1.2) H 04/16/24 03:24 GFR Calculation 61.5 mL/min (90-130) L 04/16/24 03:24 Glucose 94 mg/dL (65-115) 04/16/24 03:24 Calculated Osmolality 291 mOsm/kg (285-295) 04/16/24 03:24 Calcium 9.2 mg/dL (8.5-10.5) 04/16/24 03:24 Magnesium 1.5 mg/dL (1.7-2.3) L 04/16/24 03:24 Total Bilirubin 0.3 mg/dL (0.15-1.2) 04/15/24 04:14 AST 27 U/L (0-40) 04/15/24 04:14 ALT 23 U/L (0-41) 04/15/24 04:14 Alkaline Phosphatase 16 U/L (40-130) L 04/15/24 04:14 Troponin T Baseline 11 ng/L (0-15) 04/15/24 04:14 Troponin T 120 Minute 17.47 ng/L (0-15) H 04/15/24 06:39 Delta Troponin T 6.47 ABS# (0-10) 04/15/24 06:39 Troponin T Hi Sens 6Hr 15.82 ng/L (0-15) H 04/15/24 10:36 Troponin T Hi Sens 6Hr Delta 4.82 ng/L (0-12) 04/15/24 10:36 NT-Pro-B Natriuret Pep 73 pg/mL (0-125) 04/15/24 04:14 Total Protein 7.1 g/dL (6.6-8.7) 04/15/24 04:14 Albumin 4.0 g/dL (3.5-5.2) 04/15/24 04:14 Globulin 3.1 g/dL (1.3-4.6) 04/15/24 04:14 TSH 3.79 uIU/mL (0.27-4.20) 04/15/24 04:14 TSH 4.00 uIU/mL (0.27-4.20) 04/15/24 04:14 Urine Color Yellow (Yellow) 04/15/24 05:38 Urine Appearance Clear (CLEAR) 04/15/24 05:38 Urine pH 5.5 (5-7) 04/15/24 05:38 Ur Specific [place] 1.005 (1.005-1.030) 04/15/24 05:38 Urine Protein Negative (Negative) 04/15/24 05:38 Urine Glucose (UA) Negative (Normal) 04/15/24 05:38 Urine Ketones Negative (Negative) 04/15/24 05:38 Urine Blood Negative (Negative) 04/15/24 05:38 Urine Nitrate Negative (Negative) 04/15/24 05:38 Urine Bilirubin Negative (Negative) 04/15/24 05:38 Urine Urobilinogen 0.2 mg/dL (Negative) 04/15/24 05:38 Ur Leukocyte Esterase Negative (Negative) 04/15/24 05:38 Urine RBC 0-2 /hpf (0-2) 04/15/24 05:38 Urine WBC 0-5 /hpf (0-5) 04/15/24 05:38 Ur Squamous Epith Cells 0-5 /hpf (0-5) 04/15/24 05:38 Amorphous Sediment Not Reportable 04/15/24 05:38 Urine Bacteria None seen /hpf (NONE) 04/15/24 05:38 Hyaline Casts 0-4 /lpf H 04/15/24 05:38 Urine Opiates Screen Negative ng/mL (Negative) 04/15/24 05:38 Ur Barbiturates Screen Negative ng/mL (Negative) 04/15/24 05:38 Ur Phencyclidine Scrn Negative ng/mL (Negative) 04/15/24 05:38 Ur Amphetamines Screen Negative ng/mL (Negative) 04/15/24 05:38 U Benzodiazepines Scrn Negative ng/mL (Negative) 04/15/24 05:38 Urine Cocaine Screen Negative ng/mL (Negative) 04/15/24 05:38 U Marijuana (THC) Screen Positive ng/mL (Negative) H 04/15/24 05:38 Vitals Last Vital Signs Temp 97.4 F L 04/15/24 20:30 Pulse 54 L 04/16/24 09:33 Resp 16 04/16/24 09:33 BP 130/90 04/15/24 21:30 Pulse Ox 94 04/16/24 09:33 O2 Del Method Room Air 04/16/24 09:33 Discharge Plan Discharge Patient Disposition: Home Condition: Stable Prescriptions: New aspirin 325 mg Tablet 325 mg PO DAILY 30 Days Qty: 30 0RF metoprolol succinate 25 mg Tablet Extended Release 24 Hr 12.5 mg PO DAILY 30 Days Qty: 30 0RF pantoprazole [Protonix] 40 mg tablet,delayed release (DR/EC) 40 mg PO DAILY 30 Days Qty: 30 0RF Continued chlorthalidone 50 mg tablet 50 mg PO DAILY lisinopril 40 mg tablet 40 mg PO DAILY Discontinued meloxicam 15 mg tablet See Rx Instructions .ROUTE .COMPLEX Rx Instructions: TAKE 1/2-1 TABLET BY MOUTH DAILY FOR 4 WEEKS. THEN TAKE 1 TABLET NO MORE THAN 4 DAYS PER WEEK. Discharge Orders: Discharge Order (Routine); Ordered 04/16/24 Ordered By: Jaycee Banda Other Ambulatory Orders: Sleep Study/Titration (Routine) Timeframe: 20240416 Facility: [facility] - Location: [facility] Ordered By: Jaycee Banda Referrals: Dhaval Arciniega DO [Primary Care Provider] - 4-7 days (hospital discharge follow up ) Discharge Diet: Usual diet Discharge Activity: Resume usual activity Patient Instructions: Opioid Safety Discharge Attestations Time Spent in Discharge Care*: greater than 30 min Quality Metrics Clinical Quality Measures [ No reported AMI, CVA or VTE this stay] Coding Level of Care Code Acute Code for [facility] Fwd Diagnoses Atrial fibrillation with rapid ventricular response I48.91 Essential hypertension I10 Chest pain R07.9 Vaping nicotine dependence, tobacco product F17.290
[2024-04-16 13:00] VITALS: O2SAT 83; O2SAT 94
[2024-04-16 16:52] VITALS: BP 162/60; PULSE 60; RESP 22; TEMP 37; O2SAT 94
== END 2024-04-16 15:00 | disposition home or self-care (01) | DRG 309 ==
LOC: ER 05:03 → ER IP 08:20 → ICU 12:43
PROVIDERS: Admitting Provider Internal Medicine; Emergency Provider Emergency Medicine; PCP Electrodiagnostic Medicine; Visit Provider Student in an Organized Health Care Education/Training Program
DX: I48.19 Other persistent atrial fibrillation (principal); Z68.42 Body mass index [BMI] 45.0-49.9, adult; I10 Essential (primary) hypertension; F17.290 Nicotine dependence, other tobacco product, uncomplicated; E66.01 Morbid (severe) obesity due to excess calories; G47.30 Sleep apnea, unspecified; Z88.0 Allergy status to penicillin
CPT/HCPCS: 36415; 71045; 71275; 80048; 80053; 80306; 81001; 83735; 83880; 84443; 84484; 85025; 85378; 85610; 93005; 93306; 93970; 94660; 94760; 96365; 96366; 96367; 96372; 96374; 96375; 96376; 99291; J0283; J0360; J1650; J3475; J3490; J7030

== ENCOUNTER 2024-06-19 16:12 | Outpatient (CLI) | payer MEDICAID, SELFPAY | END 2024-06-19 16:13 | disposition home or self-care (01) | LOC: SLEEP 16:14 | PROVIDERS: PCP Electrodiagnostic Medicine; Visit Provider Nurse Practitioner Family | DX: G47.33 Obstructive sleep apnea (adult) (pediatric) (principal); G47.36 Sleep related hypoventilation in conditions classified elsewhere | CPT/HCPCS: G0399 ==

== ENCOUNTER 2024-07-26 20:00 | Outpatient (CLI) | payer MEDICAID, SELFPAY | END 2024-07-26 20:01 | disposition home or self-care (01) | LOC: SLEEP 23:15 | PROVIDERS: PCP Electrodiagnostic Medicine; Referring Provider Student in an Organized Health Care Education/Training Program; Visit Provider Internal Medicine Pulmonary Disease | DX: G47.33 Obstructive sleep apnea (adult) (pediatric) (principal) | CPT/HCPCS: 95811 ==

== ENCOUNTER 2024-12-14 13:16 | Emergency (ER) | payer MEDICAID, SELFPAY ==
[2024-12-14 13:29] VITALS: BP 155/112; PULSE 67; RESP 18; O2SAT 97
--- NOTE | 2024-12-14 13:33 | W.ED.GENADLT ---
HPI - General Adult General: Chief complaint: General Medical Stated complaint: abn bp (taken at home) Time Seen by Provider: 12/14/24 13:27 Source: patient Mode of arrival: ambulatory Limitations: no limitations History of Present Illness: 39-year-old male states he has been having high blood pressures over the last 3 to 4 days. States he has been out of one of his blood pressure meds chlorthalidone. States he had some mild nausea as well denies abdominal pain denies any vomiting. Denies any headache. Associated symptoms: Reports nausea Related Data Home Medications ?Medication ?Instructions ?Recorded ?Confirmed lisinopril 40 mg tablet 40 mg PO DAILY 04/15/24 04/15/24 Previous Rx's ?Medication ?Instructions ?Recorded chlorthalidone 50 mg tablet 50 mg PO DAILY #30 tabs 12/14/24 Allergies Allergy/AdvReac Type Severity Reaction Status Date / Time Penicillins Allergy Unknown Verified 12/19/23 16:53 Review of Systems GI: Reports: nausea [facility] ED PFSH: Medical History Fracture, rib Family History (Updated 12/14/24 @ 13:34 by Alyssa Hamilton MD) Father Hypertension Social History Smoking and tobacco/nicotine status: current every day tobacco/nicotine user (vape) e-cigarettes E-Cigarette Details: e-cigarette E-cig/vape details: daily x 5 years Alcohol intake: never Substance/Drug Use: current Substance/Drug use frequency: few times a week Lives independently: Yes Household members: family Marital status: Single Number of children: 0 Pets and animals: Yes Pets & animals: cat(s) and dog(s) Physical Exam Const: COMMON NORMALS: no acute distress, patient oriented x3 and healthy appearing HENMT: COMMON NORMALS: normocephalic and atraumatic HEAD & SCALP: normocephalic and atraumatic Eye: COMMON NORMALS: conjunctivae normal CONJUNCTIVA: Yes conjunctivae normal Neck/C-Spine: COMMON NORMALS: full ROM and supple Chest: COMMONS NORMALS: normal inspection of the chest Resp: COMMON NORMALS: normal respiratory effort Cardio: COMMON NORMALS: regular rate, regular rhythm and No murmurs present (Cardio) RATE: regular rate RHYTHM: regular rhythm GI: COMMON NORMALS: Normal to inspection, nondistended, normoactive bowel sounds present, Soft to palpation, non-tender and no masses PALPATION: Yes Soft to palpation Extremity: COMMON NORMALS: normal to inspection and full ROM Neuro: COMMON NORMALS: patient oriented x3, moves all extremities and no focal motor deficits Psych: COMMON NORMALS: mental status grossly normal, Normal thought process present and cooperative THOUGHT PROCESS: Normal thought process present Skin: COMMON NORMALS: no rashes or lesions noted and no wounds GENERAL SKIN EXAM: no rashes or lesions noted Course Vital Signs: Vital signs: Vital Signs Pulse Rate 70 12/14/24 14:08 Respiratory Rate 18 12/14/24 13:29 Blood Pressure 185/118 12/14/24 14:08 Pulse Oximetry 100 12/14/24 14:08 Oxygen Delivery Me thod Room Air 12/14/24 14:08 MDM - General Adult Medical Decision Making Patient presents here with hypertension he is asymptomatic. Denies any chest pain or shortness of breath he has ran out of his chlorthalidone is likely causing his hypertension. His blood work here is normal EKG showed no acute abnormalities did go over this with him and form is very important takes his med as prescribed will refill his chlorthalidone he is to follow-up with his PCP and return if worsening he understands agrees to plan Medical Records I reviewed the patient's medical records. Lab Data I reviewed the patient's lab results. 12/14/24 13:44 12/14/24 13:44 Laboratory Results WBC 8.53 10^3/uL (3.29-11.43) 12/14/24 13:44 RBC 5.18 10^6/uL (3.85-5.65) 12/14/24 13:44 Hgb 15.20 g/dL (11.27-16.99) 12/14/24 13:44 Hct 46.0 % (37-53) 12/14/24 13:44 MCV 88.8 fl (82-101) 12/14/24 13:44 MCH 29.3 pg (27-33) 12/14/24 13:44 MCHC 33.0 g/dL (30-55) 12/14/24 13:44 RDW 13.1 % (12.1-15.1) 12/14/24 13:44 Plt Count 172 10^3/cmm (157-399) 12/14/24 13:44 MPV 10.6 fL (7.4-10.4) H 12/14/24 13:44 Neut % (Auto) 73.6 % 12/14/24 13:44 Lymph % (Auto) 19.3 % 12/14/24 13:44 [place] % (Auto) 4.6 % 12/14/24 13:44 Eos % (Auto) 1.6 % 12/14/24 13:44 Baso % (Auto) 0.5 % 12/14/24 13:44 Neut # (Auto) 6.28 10^3/uL (1.8-7.7) 12/14/24 13:44 Lymph # (Auto) 1.7 10^3/uL (0.8-4.8) 12/14/24 13:44 [place] # (Auto) 0.4 10^3/uL (0.2-0.9) 12/14/24 13:44 Eos # (Auto) 0.1 10^3/uL (0.0-0.8) 12/14/24 13:44 Baso # (Auto) 0.0 10^3/uL (0.0-0.1) 12/14/24 13:44 Nucleated RBC % (auto) 0 % 12/14/24 13:44 Nucleated RBCs # 0.0 /100WBC 12/14/24 13:44 Sodium 136 mmol/L (136-145) 12/14/24 13:44 Potassium 3.8 mmol/L (3.5-5.1) 12/14/24 13:44 Chloride 101 mmol/L (98-107) 12/14/24 13:44 Carbon Dioxide 22 mmol/L (22-29) 12/14/24 13:44 Anion Gap 16.8 (5-19) 12/14/24 13:44 BUN 12 mg/dL (6-20) 12/14/24 13:44 Creatinine 1.1 mg/dL (0.7-1.2) 12/14/24 13:44 GFR Calculation 74.1 mL/min (90-130) L 12/14/24 13:44 Glucose 164 mg/dL (65-115) H 12/14/24 13:44 Calculated Osmolality 285 mOsm/kg (285-295) 12/14/24 13:44 Calcium 9.1 mg/dL (8.5-10.5) 12/14/24 13:44 Total Bilirubin 0.7 mg/dL (0.15-1.2) 12/14/24 13:44 AST 16 U/L (0-40) 12/14/24 13:44 ALT 16 U/L (0-41) 12/14/24 13:44 Alkaline Phosphatase 13 U/L (40-130) L 12/14/24 13:44 Total Protein 7.8 g/dL (6.6-8.7) 12/14/24 13:44 Albumin 4.1 g/dL (3.5-5.2) 12/14/24 13:44 Globulin 3.7 g/dL (1.3-4.6) 12/14/24 13:44 Lipase 99 U/L (13-60) H 12/14/24 13:44 No radiology studies performed this visit EKG Data EKG 1: I personally reviewed and interpreted this EKG as follows: EKG interpretation date: 12/14/24 EKG interpretation time: 14:12 Interpretation: nsr hr [address] elevation qrs 99 qtc 405 Discharge Plan Discharge Patient Disposition: Home Clinical Impression: Essential hypertension Condition: Stable Prescriptions: Continued chlorthalidone 50 mg tablet 50 mg PO DAILY Qty: 30 0RF No Action lisinopril 40 mg tablet 40 mg PO DAILY Discharge Orders: Discharge ED (Routine); Ordered 12/14/24 Ordered By: Alyssa Hamilton Referrals: Dhaval Arciniega DO [Primary Care Provider, [facility]] - 1-3 days Discharge Diet: Advance as tolerated Discharge Activity: Resume usual activity Patient Instructions: Hypertension (ED) Print Language: Sammarinese Coding Level of Care Code ED Director Alumni Relations for Kathy Quijano
[2024-12-14] MEDS: ondansetron hcl ODT 4 mg Tab PO (13:38)
[2024-12-14 13:53] LABS: Hematocrit 46.0 % (37-53); Hemoglobin 15.20 g/dL (11.27-16.99); Mean Corpuscular HGB Conc 33.0 g/dL (30-55); Mean Corpuscular Hemoglobin 29.3 pg (27-33); Mean Corpuscular Volume 88.8 fl (82-101); Nucleated Red Blood Cells % 0 %; Platelet Count 172 10^3/cmm (157-399); Red Blood Count 5.18 10^6/uL (3.85-5.65); White Blood Count 8.53 10^3/uL (3.29-11.43)
[2024-12-14 14:07] LABS: Alanine Aminotransferase 16 U/L (0-41); Albumin Level 4.1 g/dL (3.5-5.2); Alkaline Phosphatase 13 U/L (40-130); Anion Gap 16.8 (5-19); Aspartate Amino Transferase 16 U/L (0-40); Blood Urea Nitrogen 12 mg/dL (6-20); Calcium 9.1 mg/dL (8.5-10.5); Carbon Dioxide 22 mmol/L (22-29); Chloride 101 mmol/L (98-107); Creatinine Clr Calc Pharmacy 144.7439; Globulin 3.7 g/dL (1.3-4.6); Glucose 164 mg/dL (65-115); Lipase 99 U/L (13-60); Osmolality Calculated 285 mOsm/kg (285-295); Potassium 3.8 mmol/L (3.5-5.1); Sodium 136 mmol/L (136-145); Total Protein 7.8 g/dL (6.6-8.7)
[2024-12-14 14:08] VITALS: BP 185/118; PULSE 70; O2SAT 100
--- NOTE | 2024-12-14 14:12 | ECG_ITS ---
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
[2024-12-14] MEDS: hyDRALAzine 20 mg/mL INJ 1 mL 10 MG IVP (14:35)
[2024-12-14 14:36] VITALS: BP 143/104; PULSE 71; O2SAT 98
[2024-12-14 14:50] VITALS: BP 155/108; PULSE 70; O2SAT 99
== END 2024-12-14 14:51 | disposition home or self-care (01) ==
PROVIDERS: Emergency Provider Emergency Medicine; PCP Electrodiagnostic Medicine
DX: I10 Essential (primary) hypertension (principal); F17.290 Nicotine dependence, other tobacco product, uncomplicated
CPT/HCPCS: 36415; 80053; 83690; 85025; 93005; 96374; 99284; J0360; J9999; Q0162

== ENCOUNTER 2024-12-14 17:21 | Emergency (ER) | payer MEDICAID, SELFPAY ==
[2024-12-14 17:32] VITALS: BP 173/103; PULSE 75; RESP 18; TEMP 36.7; O2SAT 97
--- NOTE | 2024-12-14 18:00 | ECG_ITS ---
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
--- NOTE | 2024-12-14 18:03 | ED_ITS ---
HPI - General Adult General: Chief complaint: General Medical Stated complaint: BP high Time Seen by Provider: 12/14/24 18:00 History of Present Illness: 39-year-old man with history of obesity and hypertension who returns to the emergency room this evening with continued high blood pressure. He said his blood pressure got back up in the 170s after multiple treatments at home. He has been completely asymptomatic. I discussed with him that his blood pressure will not normalize immediately and that these high blood pressures are not dangerous acutely. He expresses understanding. No chest pain. No abdominal pain. No vomiting. Related Data Home Medications ?Medication ?Instructions ?Recorded ?Confirmed lisinopril 40 mg tablet 40 mg PO DAILY 04/15/2410/30 Previous Rx's ?Medication ?Instructions ?Recorded chlorthalidone 50 mg tablet 50 mg PO DAILY #30 tabs clonidine HCl 0.1 mg tablet 0.1 mg PO DAILY PRN hypert ension 12/14/24 #20 tabs Allergies Allergy/AdvReac Type Severity Reaction Status Date / Time Penicillins Allergy Unknown Verified 12/19/23 16:53 Review of Systems Narrative: Constitutional symptoms: Negative except as documented in HPI. Skin symptoms: Negative except as documented in HPI. Eye symptoms: Negative except as documented in HPI. ENMT symptoms: Negative except as documented in HPI. Respiratory symptoms: Negative except as documented in HPI. Cardiovascular symptoms: Negative except as documented in HPI. Gastrointestinal symptoms: Negative except as documented in HPI. Genitourinary symptoms: Negative except as documented in HPI. Musculoskeletal symptoms: Negative except as documented in HPI. Neurologic symptoms: Negative except as documented in HPI. Psychiatric symptoms: Negative except as documented in HPI. Endocrine symptoms: Negative except as documented in HPI. PFSH ED PFSH: Medical History (Updated 12/14/24 @ 18:13 by Sarah Jackson MD) Fracture, rib Family History (Updated 12/14/24 @ 13:34 by Alyssa Hamilton MD) Father Hypertension Social History Smoking and tobacco/nicotine status: current every day tobacco/nicotine user (vape) e-cigarettes E-Cigarette Details: e-cigarette E-cig/vape details: daily x 5 years Alcohol intake: never Substance/Drug Use: current Substance/Drug use frequency: few times a week Lives independently: Yes Household members: family Marital status: Single Number of children: 0 Pets and animals: Yes Pets & animals: cat(s) and dog(s) Physical Exam Narrative: EXAM NARRATIVE: General: Alert, no acute distress. Skin: Warm, dry. Head: Normocephalic, atraumatic. Neck: Supple, trachea midline. Eye: Extraocular movements are intact. Ears, nose, mouth and throat: mucosa moist. Cardiovascular: Regular, Normal peripheral perfusion. Respiratory: Lungs are clear to auscultation, respirations are non-labored, breath sounds are equal, Symmetrical chest wall expansion. Gastrointestinal: Soft, Nontender, Non distended Musculoskeletal: Normal ROM, no deformity. Neurological: Alert and oriented, No focal neurological deficit observed. Psychiatric: Cooperative, appropriate mood & affect. Course Vital Signs: Vital signs: Vital Signs Temperature 98.1 F 12/14/24 17:32 Pulse Rate 95 12/14/24 18:35 Respiratory Rate 16 12/14/24 18:17 Blood Pressure 154/106 12/14/24 18:35 Pulse Oximetry 97 12/14/24 18:35 Oxygen Delivery Me thod Room Air 12/14/24 17:32 MDM - General Adult Medical Decision Making Medical decision making: Differential diagnosis including but not limited to and based on the above HPI, review of systems and physical exam: Patient had a normal cardiac workup and a normal repeat EKG here this afternoon. He has been asymptomatic. We discussed that no further workup is needed to be done at this time. I did give him a clonidine and a prescription for as needed clonidine. EKG: Time 1739. Rate 72. Normal sinus rhythm, No ST-T changes, no ectopy, normal ND & QRS intervals, This was reviewed and interpreted by myself the ER physician at 1745. Assessment and plan: Hypertension ?Clonidine in the emergency room - Discharged home - Discussed plan with patient. Answered any questions. - Evaluation and treatment of this problem were appropriate in the emergency setting. All radiology interpretation(s) finalized by discharge Discharge Plan Discharge Patient Disposition: Home Clinical Impression: Essential hypertension Condition: Stable Prescriptions: New clonidine HCl 0.1 mg tablet 0.1 mg PO DAILY PRN (Reason: hypertension) Qty: 20 0RF Rx Instructions: For Systolic >185 diastolic >100. If you are needing this more than once a day you need to follow with your primary care provider No Action lisinopril 40 mg tablet 40 mg PO DAILY chlorthalidone 50 mg tablet 50 mg PO DAILY Qty: 30 0RF Discharge Orders: Discharge ED (Routine); Ordered 12/14/24 Ordered By: Sarah Jackson Referrals: Dhaval Arciniega DO [Primary Care Provider, Family Practice] Discharge Diet: Usual diet Discharge Activity: Increase activity as tolerated Patient Instructions: Hypertension (ED), Opioid Safety, Pain Management, Patient Portal & Ever Instructions Activity Restrictions/Additional Instructions: Thank you for choosing [facility] for your healthcare needs today. You have been screened and evaluated and felt safe for discharge. Health conditions do change or evolve sometimes and as such it is important that you follow up with your Primary Doctor to be re checked, 3-5 days is a general good time frame for follow up. You are always welcome to return to the ED for re assessment if your symptoms are worsening or you have new concerns Print Language: Khmer Coding Level of Care Code ED Covering Machine Tender for Kathy Quijano
[2024-12-14 18:16] VITALS: BP 178/114
[2024-12-14 18:17] VITALS: BP 178/114; PULSE 74; RESP 16; O2SAT 95
[2024-12-14 18:35] VITALS: BP 154/106; PULSE 95; O2SAT 97
== END 2024-12-14 18:36 | disposition home or self-care (01) ==
PROVIDERS: Emergency Provider Emergency Medicine; PCP Electrodiagnostic Medicine
DX: I10 Essential (primary) hypertension (principal); F17.290 Nicotine dependence, other tobacco product, uncomplicated
CPT/HCPCS: 93005; 99285; J9999

== ENCOUNTER 2025-03-07 11:54 | Outpatient (CLI) | payer MEDICAID, SELFPAY ==
--- NOTE | 2025-03-07 | ECG_ITS ---
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 Baseline heart rate was 73 beats per minute. Baseline blood pressure was 149/89 millimeters of mercury. Target heart rate was 180 beats per minute. Maximum heart rate achieved was 177, which was 98 % of the target heart rate. Maximum blood pressure was 194/112 millimeters of mercury. Total exercise time was 6 minutes. Maximum METs achieved was 7.0, maximum VO2 was 24.5. The reason for ending the test was maximum effort achieved. The patient complained of shortness of breath during the stress test, which then resolved at the end of the test. ELECTROCARDIOGRAM: BASELINE: Showed sinus rhythm, normal axis, no significant ST-T changes at the baseline noted. EXERCISE: At the peak exercise level, no significant ST-T changes suggestive of ischemia noted. RECOVERY: During the recovery period, heart rate dropped appropriately. No significant ST-T changes in the recovery suggestive of ischemia noted. CONCLUSION: 1. Exercise capacity poor 2. Heart rate response was tachycardic. 3. Blood pressure response was hypertensive. 4. Symptoms not suggestive of ischemia. 5. Electrocardiogram portion of the stress test was not suggestive of ischemia. 6. Nuclear scan will be documented separately. Electronically Signed On 03-08-2025 15:25:24 ELECTRONICS SPECIALIST by CISCO ROBLERO [email or web address]
[2025-03-07 12:03] VITALS: BMI 46.2
[2025-03-07 12:32] VITALS: BP 153/80; PULSE 105
== END 2025-03-07 11:55 | disposition home or self-care (01) ==
LOC: CDL 11:57
PROVIDERS: PCP Electrodiagnostic Medicine; Visit Provider Internal Medicine Cardiovascular Disease
DX: R07.9 Chest pain, unspecified (principal); R06.02 Shortness of breath
CPT/HCPCS: 93017